=== PATIENT | male | born 1995 | race Caucasian/White ===

== ENCOUNTER 2016-09-24 15:05 | Emergency (ER) | payer OTHER ==
[2016-09-24] MEDS ORDERED: OPTIRAY 350 100 ML VIAL HMH IV ONE (15:06)
[2016-09-24] MEDS ORDERED: ONDANSETRON 4 MG VIAL ONE (16:15)
[2016-09-24] MEDS ORDERED: SODIUM CHLORIDE 0.9% 1,000 ML ONE (16:15)
== END 2016-09-24 19:52 | disposition home or self-care (01) ==
LOC: ER 15:05
DX: R11.2 Nausea with vomiting, unspecified (principal); R19.7 Diarrhea, unspecified; R10.31 Right lower quadrant pain; F17.210 Nicotine dependence, cigarettes, uncomplicated
CPT/HCPCS: 36415; 74177; 80053; 81003; 83690; 85025; 96361; 96374; 99285; J2405; Q9967